=== PATIENT | female | born 2000 | race Two or more races ===

== ENCOUNTER 2020-12-26 20:03 | Emergency (ER) | payer MEDICAID ==
[~2020-12-26] VITALS: Ht 160 cm; Wt 60.3 kg
[2020-12-26] MEDS ORDERED: LIDOCAINE-MPF 1%, 5ML INFIL ONE (20:30)
[2020-12-26] MEDS ORDERED: LIDOCAINE-MPF 1%, 5ML ONE (22:13)
--- NOTE | 2020-12-26 22:17 | NUR ---
1ST CONTACT C PT. RESTING ON CART IN NAD. PT STATES SHE WAS BIT BY HER DOG. 2 LACS NOTED TO UPPER LIP, BLEEDIN CONTROLLED. MANDEEP AT BS.
[2020-12-27] MEDS ORDERED: BACITRACIN ZINC OINT 500U/GM, 0.9 GM ONE (00:08)
[2020-12-27 00:32] VITALS: BP 110/56
== END 2020-12-27 00:34 | disposition home or self-care (01) ==
LOC: ED 23:00
DX: S01.551A Open bite of lip, initial encounter (principal); S01.511A Laceration without foreign body of lip, initial encounter; W54.0XXA Bitten by dog, initial encounter; Y93.89 Activity, other specified; Y92.009 Unspecified place in unspecified non-institutional (private) residence as the place of occurrence of the external cause; Y99.8 Other external cause status
CPT/HCPCS: 40650; 99284